=== PATIENT | male | born 1970 | race Caucasian/White ===

== ENCOUNTER 2016-09-23 16:38 | Emergency (ER) | payer SELFPAY ==
[~2016-09-23] VITALS: Ht 185.4 cm; Wt 85.0 kg
[~2016-09-23 16:38] MED LIST: LORTA5 PO
[2016-09-23 16:39] VITALS: BP 144/86; PULSE 87; RESP 18; TEMP 98.2; O2SAT 96
--- NOTE | 2016-09-23 17:37 | PD ---
HPI Chief Complaint: Injury Time Seen by Provider: 17:35 Travel History International Travel<30 days: No Contact w/Intl Traveler<30days: No Traveled to known affect area: No History of Present Illness HPI 46-year-old male presents to the emergency Department with complaint of a fish hook stuck in his left index finger. He attempted to push it through but he was afraid it was going to go through his nail bed. [place] was being used for saltwater fishing. He denies paresthesias, loss of sensation, decreased range of motion to the affected finger. He is not up-to-date on his tetanus vaccination. He denies fever, chills, nausea, vomiting. No known allergies. No other modifying factors or associated signs and symptoms. PFSH Past Medical History Diminished Hearing: Yes (FROM HEAVY EQUIP) Past Surgical History Appendectomy: Yes Tonsillectomy: Yes Social History Alcohol Use: Yes (OCC.) Tobacco Use: Yes (1 PPD) Substance Use: No Allergies-Medications (Allergen,Severity, Reaction): Coded Allergies: No Known Allergies (Verified , 11/09/13) Reported Meds & Prescriptions Reported Meds & Active Scripts Active Ibuprofen 800 Mg Tab 800 Mg PO Q6HR PRN Doxycycline Hyclate 100 Mg Cap 100 Mg PO BID 10 Days Hydrocodone/Acetaminophen 5 mg/325 mg 1 Tab Tab 1 Tab PO Q6 PRN Review of Systems Except as stated in HPI: all other systems reviewed are Neg Physical Exam Narrative GENERAL: Well-nourished, well-developed male patient, in no acute distress SKIN: Warm and dry. Fish hook noted to the distal aspect of the left index finger, not involving the nailbed. Finger is without erythema, edema; with full range of motion and sensory intact; less than 3 second cap refill. HEAD: Atraumatic. Normocephalic. EYES: Pupils equal and round. No scleral icterus. No injection or drainage. ENT: Mucosa pink and moist. Airway patent. NECK: Trachea midline. CARDIOVASCULAR: Regular rate. RESPIRATORY: No accessory muscle use. GASTROINTESTINAL: Flat. MUSCULOSKELETAL: No obvious deformities. No clubbing. No cyanosis. No edema. NEUROLOGICAL: Awake and alert. Oriented 3. No obvious cranial nerve deficits. Motor grossly within normal limits. Normal speech. PSYCHIATRIC: Appropriate mood and affect; insight and judgment normal. Data Data Last Documented VS Vital Signs Date Time Temp Pulse Resp B/P Pulse Ox O2 Delivery O2 Flow Rate FiO2 09/23/16 18:58 16 09/23/16 17:57 Room Air 09/23/16 16:39 98.2 87 144/86 96 Orders Finger ([id number]) (09/23/16 ) Ibuprofen (Motrin) (09/23/16 17:45) Tetanus/Diphtheria Tox Adult (Tetanus/Di (09/23/16 17:45) Bupivacaine Pf 0.5% Inj (Marcaine Pf 0.5 (09/23/16 17:45) Lidocaine 1% Inj (50 Ml) (Xylocaine 1% I (09/23/16 17:45) Finger ([id number]) (09/23/16 ) MDM Medical Decision Making Medical Screen Exam Complete: Yes Emergency Medical Condition: Yes Medical Record Reviewed: Yes Differential Diagnosis [place] injury, soft tissue foreign body, finger foreign body Narrative Course 46-year-old male with a fishhook in the distal aspect of the left index finger. Tetanus updated in the ER. Ibuprofen administered. Left index finger x-ray ordered. See my procedure note for fishhook removal. Doxycycline and ibuprofen prescribed for home. Patient verbalizes understanding and agreement with treatment plan. Patient is medically cleared and stable for discharge. Discussed reasons to return to the emergency department. Instructed patient to follow up with primary care provider. Patient agrees with treatment plan. The patients vital signs are stable and the patient is stable for outpatient follow- up and treatment. Patient discharged home, stable and in no acute distress. 1807: Left index finger x-ray concludes: Last 24 hours Impressions Finger X-Ray 09/23/16 0000 Signed Impressions: Service Date/Time: Friday, September 23, 2016 17:42 - CONCLUSION: [place] in the tip of the index finger Jesus Napier MD 1848: Repeat x-ray ordered of left index finger post foreign body removal; x- ray concludes foreign body removal and no acute bony injury. Doxycycline and ibuprofen prescribed for home. Patient verbalizes understanding and agreement with treatment plan. Patient is medically cleared and stable for discharge. Discussed reasons to return to the emergency department. Instructed patient to follow up with primary care provider. Patient agrees with treatment plan. The patients vital signs are stable and the patient is stable for outpatient follow-up and treatment. Patient discharged home, stable and in no acute distress. Procedures Procedure Narrative Foreign body removal of left index finger: The finger was digitally blocked with 0.5% bupivacaine and 1% lidocaine. The finger was cleaned with Betadine. The fishhook was successfully removed by pushing it through the pad of the palmar aspect of the finger. Patient tolerated well. Sterile dressing applied. Repeat x-ray ordered. Diagnosis Primary Impression: Fish hook injury of left index finger Qualified Code: S69.92XA - Fish hook injury of left index finger, initial encounter Additional Impression: Foreign body of finger Referrals: Primary Care Physician Patient Instructions: General Instructions, Puncture Wound (ED) Additional Instructions: Take antibiotics as prescribed and complete full course Follow-up with primary care provider Return to the emergency department immediately with worsening symptoms Med/Other Pt SpecificInfo: Prescription(s) given Scripts Ibuprofen 800 Mg [id number] Mg PO Q6HR PRN (PAIN) #30 TAB Ref 0 Prov:Sheryl Motta 09/23/16 Doxycycline Hyclate 100 Mg [id number] Mg PO BID 10 Days Ref 0 Prov:Sheryl Motta 09/23/16 Disposition: 01 DISCHARGE HOME Condition: Stable Sheryl Motta Sep 23, 2016 17:37
[2016-09-23] MEDS ORDERED: TETANUS/DIPHTHERIA TOXOID ADULT 0.5 ML VIAL IM ONE (17:45)
[2016-09-23] MEDS ORDERED: BUPIVACAINE HCL PF 0.5% 10 ML VIAL INFIL ONE (17:45)
[2016-09-23] MEDS ORDERED: IBUPROFEN 800 MG TAB PO ONE (17:45)
[2016-09-23] MEDS ORDERED: LIDOCAINE HCL 1% 50 ML VIAL INFIL ONE (17:45)
[2016-09-23] MEDS ORDERED: IBUP800T23 PO (17:46)
[2016-09-23] MEDS ORDERED: DOXY100C PO (17:46)
--- NOTE | 2016-09-23 17:51 | RADRPT ---
EXAM DATE/TIME: 09/23/2016 17:42 [facility] COMPARISON: HAND LEFT COMPLETE ([id number]), November 09, 2013, 19:26. INDICATIONS : Foreign body. MEDICAL HISTORY : Trauma, fishing hook. SURGICAL HISTORY : None. ENCOUNTER: Initial ACUITY: 1 day PAIN SCORE: 2/10 LOCATION: Left Hand, 2nd Digit FINDINGS: A fishhook projects in the tip of the index finger entering the palmar aspect of the index finger wit h the mireille appearing to at least abut the distal tuft without definite fracture associated. The bony elements are nonacute throughout. An old ulnar solid fracture fragment unchanged. No signif icant articular abnormalities are evident. CONCLUSION: [place] in the tip of the index finger Jesus Napier MD on September 23, 2016 at 17:48 Board Certified Radiologist. This report was verified electronically.
[2016-09-23 18:58] VITALS: RESP 16
--- NOTE | 2016-09-23 19:31 | RADRPT ---
EXAM DATE/TIME: 09/23/2016 19:06 [facility] COMPARISON: FINGER LEFT 2ND DIGIT ([id number]), September 23, 2016, 17:42. INDICATIONS : Post removal of fishing hook. MEDICAL HISTORY : None. SURGICAL HISTORY : None. ENCOUNTER: Initial ACUITY: 1 day PAIN SCORE: 0/10 LOCATION: Left second digit. FINDINGS: Fish hook is been removed from the tip of the index finger. There is no evidence of remaining foreign body. The bony elements are intact and unremarkable. CONCLUSION: Successful removal of Fish hook foreign body Jesus Napier MD on September 23, 2016 at 19:29 Board Certified Radiologist. This report was verified electronically.
== END 2016-09-23 19:45 | disposition home or self-care (01) ==
LOC: NETRI 16:38 → NEPB 19:45
DX: S61.241A Puncture wound with foreign body of left index finger without damage to nail, initial encounter (principal); W45.8XXA Other foreign body or object entering through skin, initial encounter; Y93.89 Activity, other specified; Y92.89 Other specified places as the place of occurrence of the external cause; Z23 Encounter for immunization; F17.210 Nicotine dependence, cigarettes, uncomplicated
CPT/HCPCS: 64450; 73140; 90471; 90714

== ENCOUNTER 2017-10-23 13:59 | Emergency (ER) | payer OTHER ==
[~2017-10-23] VITALS: Ht 188 cm; Wt 103.2 kg
[~2017-10-23 13:59] MED LIST changes: +DOXY100C PO; +IBUP1TAB7 PO
[2017-10-23 14:05] VITALS: BP 165/101; PULSE 130; RESP 18; TEMP 98.3; O2SAT 99
[2017-10-23] MEDS ORDERED: SUBO8MIS SL (14:28)
[2017-10-23] MEDS ORDERED: VIST25CA PO (14:28)
[2017-10-23] MEDS ORDERED: SODIUM CHLOR 0.9% 1000 ML INJ 1,000 ML IV ONE (14:30)
[2017-10-23 14:39] LABS: AUTOMATED NEUTROPHIL # 3.8 TH/MM3 (1.8-7.7); BASOPHIL # 0.1 TH/MM3 (0-0.2); BASOPHIL % 1.3 % (0.0-2.0); EOSINOPHIL # 0.1 TH/MM3 (0-0.4); EOSINOPHIL % 1.6 % (0.0-4.0); HEMATOCRIT 40.2 % (39.0-51.0); HEMOGLOBIN 13.6 GM/DL (13.0-17.0); LYMPHOCYTE # 2.4 TH/MM3 (1.0-4.8); MEAN CELL VOLUME 87.6 FL (80.0-100.0); MEAN CORPUSCULAR HEMOGLOBIN 29.8 PG (27.0-34.0); MEAN PLATELET VOLUME 7.8 FL (7.0-11.0); MONO % 7.9 % (0.0-8.0); MONOCYTE # 0.6 TH/MM3 (0-0.9); NEUT % 55.2 % (16.0-70.0); PLATELET COUNT 236 TH/MM3 (150-450); RED BLOOD COUNT 4.59 MIL/MM3 (4.50-5.90); RED CELL DISTRIBUTION WIDTH 12.9 % (11.6-17.2)
[2017-10-23 14:47] LABS: CHLORIDE 103 MEQ/L (98-107); SODIUM (NA) 137 MEQ/L (136-145)
[2017-10-23 14:50] LABS: CALCIUM 8.5 MG/DL (8.5-10.1)
[2017-10-23 14:51] LABS: ALBUMIN 3.6 GM/DL (3.4-5.0); BLOOD UREA NITROGEN 8 MG/DL (7-18); GLUCOSE,RANDOM 115 MG/DL (74-106)
[2017-10-23 14:54] LABS: ALT (GPT) 18 U/L (12-78); AST (GOT) 14 U/L (15-37); GLOMERULAR FILTRATION RATE 81 ML/MIN (>89)
[2017-10-23 14:56] LABS: TOTAL BILIRUBIN ADULT 0.2 MG/DL (0.2-1.0); TOTAL PROTEIN 7.1 GM/DL (6.4-8.2)
[2017-10-23 14:57] LABS: ALKALINE PHOSPHATASE 69 U/L (45-117)
--- NOTE | 2017-10-23 15:01 | RADRPT ---
EXAM DATE/TIME: 10/23/2017 14:45 [facility] COMPARISON: No previous studies available for comparison. INDICATIONS : Short of breath since today. MEDICAL HISTORY : None. SURGICAL HISTORY : None. ENCOUNTER: Initial ACUITY: 1 day PAIN SCORE: 0/10 LOCATION: Bilateral chest FINDINGS: A single view of the chest demonstrates the lungs to be symmetrically aerated without evidence of mas s, infiltrate or effusion. The cardiomediastinal contours are unremarkable. Osseous structures are intact with old healed left clavicular fracture. There are overlying electrocardiogram leads. CONCLUSION: No acute disease. Gelacio Cash MD on October 23, 2017 at 14:59 Board Certified Radiologist. This report was verified electronically.
[2017-10-23 15:21] VITALS: BP 155/95
--- NOTE | 2017-10-23 15:23 | PD ---
HPI Chief Complaint: Anxiety Time Seen by Provider: 14:16 Travel History International Travel<30 days: No Contact w/Intl Traveler<30days: No Traveled to known affect area: No History of Present Illness HPI Patient is a 47 year old male who comes in complaining of a panic attack. He says he started to feel short of breath and have palpitations and became very anxious. He took 2 Hydroxyzine prior to coming in. He says his symptoms made him feel very nervous, so he came in. He denies chest pain, leg pain or swelling. He says he has been drinking more alcohol in the past week. Severity is mild to moderate. 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) Allergies-Medications (Allergen,Severity, Reaction): Coded Allergies: No Known Allergies (Verified Adverse Reaction, Unknown, 10/23/17) Reported Meds & Prescriptions Reported Meds & Active Scripts Active Reported Vistaril (Hydroxyzine Pamoate) 25 Mg Cap 25 Mg PO BID PRN Suboxone Sublingual Film (Buprenorphine-Naloxone Sublingual Film) Unknown Strength Film Unknown Dose SL DAILY Unique ID number required: Review of Systems Except as stated in HPI: all other systems reviewed are Neg General / Constitutional: No: Fever, Chills HENT: No: Headaches, Lightheadedness Cardiovascular: Positive: Palpitations, No: Chest Pain or Discomfort Respiratory: Positive: Shortness of Breath Gastrointestinal: No: Nausea, Vomiting Musculoskeletal: No: Myalgias Neurologic: No: Weakness, Dizziness Psychiatric: Positive: Anxiety Physical Exam Narrative GENERAL: Awake and alert, in no acute distress. SKIN: Focused skin assessment warm/dry. HEAD: Atraumatic. Normocephalic. EYES: Pupils equal and round. No scleral icterus. ENT: Mucous membranes pink and moist. NECK: Trachea midline. No JVD. CARDIOVASCULAR: Tachycardia. No murmur appreciated. RESPIRATORY: No accessory muscle use. Clear to auscultation. Breath sounds equal bilaterally. GASTROINTESTINAL: Abdomen soft, non-tender, nondistended. MUSCULOSKELETAL: No obvious deformities. No clubbing. No cyanosis. No edema. NEUROLOGICAL: Awake and alert. No obvious cranial nerve deficits. Motor grossly within normal limits. Normal speech. PSYCHIATRIC: Appropriate mood and affect; insight and judgment normal. Data Data Last Documented VS Vital Signs Date Time Temp Pulse Resp B/P (MAP) Pulse Ox O2 Delivery O2 Flow Rate FiO2 10/23/17 14:21 119 16 10/23/17 14:05 98.3 165/101 (122) 99 Orders Orders Iv Access Insert/Monitor (10/23/17 14:22) Complete Blood Count With Diff (10/23/17 14:22) Comprehensive Metabolic Panel (10/23/17 14:22) D-Dimer (10/23/17 14:22) Electrocardiogram (10/23/17 ) Chest, Single Ap (10/23/17 ) Alcohol (Ethanol) (10/23/17 14:22) Sodium Chlor 0.9% 1000 Ml Inj (Ns 1000 M (10/23/17 14:30) Labs Laboratory Tests Test 10/23/17 14:30 White Blood Count 7.0 TH/MM3 Red Blood Count 4.59 MIL/MM3 Hemoglobin 13.6 GM/DL Hematocrit 40.2 % Mean Corpuscular Volume 87.6 FL Mean Corpuscular Hemoglobin 29.8 PG Mean Corpuscular Hemoglobin Concent 34.0 % Red Cell Distribution Width 12.9 % Platelet Count 236 TH/MM3 Mean Platelet Volume 7.8 FL Neutrophils (%) (Auto) 55.2 % Lymphocytes (%) (Auto) 34.0 % Monocytes (%) (Auto) 7.9 % Eosinophils (%) (Auto) 1.6 % Basophils (%) (Auto) 1.3 % Neutrophils # (Auto) 3.8 TH/MM3 Lymphocytes # (Auto) 2.4 TH/MM3 Monocytes # (Auto) 0.6 TH/MM3 Eosinophils # (Auto) 0.1 TH/MM3 Basophils # (Auto) 0.1 TH/MM3 CBC Comment DIFF FINAL Differential Comment Blood Urea Nitrogen 8 MG/DL Creatinine 1.00 MG/DL Random Glucose 115 MG/DL Total Protein 7.1 GM/DL Albumin 3.6 GM/DL Calcium Level 8.5 MG/DL Alkaline Phosphatase 69 U/L Aspartate Amino Transf (AST/SGOT) 14 U/L Alanine Aminotransferase (ALT/SGPT) 18 U/L Total Bilirubin 0.2 MG/DL Sodium Level 137 MEQ/L Potassium Level 3.3 MEQ/L Chloride Level 103 MEQ/L Carbon Dioxide Level 28.0 MEQ/L Anion Gap 6 MEQ/L Estimat Glomerular Filtration Rate 81 ML/MIN Ethyl Alcohol Level 37 MG/DL MDM Medical Decision Making Medical Screen Exam Complete: Yes Emergency Medical Condition: Yes Medical Record Reviewed: Yes Interpretation(s) ECG shows sinus tachycardia at a rate of 112. Differential Diagnosis dehydration vs intoxication vs anxiety Narrative Course Patient is a 47 year old male who comes in complaining of a panic attack with shortness of breath and palpitations. Exam shows tachycardia. IV established, labs sent. Patient did not want to wait for labs to come back. He was given IVF and he says that his Hydroxyzine kicked in and he was feeling better. I explained to him that his labs could be abnormal suggesting something dangerous occurring. He does not wish to stay any longer. He understands that by leaving AMA, he could become more sick or even . AMA: The risks of leaving against medical advice without further evaluation treatment were discussed with the patient. These risks include cardiac dysfunction, cardiac dysrhythmia, possible heart attack, possible stroke or . The patient indicated understanding of these risks and appeared to have the capacity to make this decision. Diagnosis Primary Impression: Anxiety Disposition: 07 AGAINST MEDICAL ADVICE Mimi Murrieta MD Oct 23, 2017 15:23
--- NOTE | 2017-10-23 20:41 | EKG ---
Date Performed: 10/23/2017 Time Performed: 14:36:01 PTAGE: 47 years EKG: Sinus rhythm VOLTAGE CRITERIA FOR LVH ABNORMAL RHYTHM ECG NO PREVIOUS TRACING DOCTOR: Fady Harris Interpretating Date/Time 10/23/2017 20:41:05
== END 2017-10-23 15:26 | disposition left against medical advice (07) ==
LOC: PHED 13:59
DX: F41.9 Anxiety disorder, unspecified (principal); R06.02 Shortness of breath; R00.2 Palpitations; R00.0 Tachycardia, unspecified; F17.200 Nicotine dependence, unspecified, uncomplicated; R94.31 Abnormal electrocardiogram [ECG] [EKG]; Z79.899 Other long term (current) drug therapy
CPT/HCPCS: 71045; 80053; 80307; 85025; 85379; 93005; 96360; 99285; J7030

== ENCOUNTER 2017-10-23 17:51 | Emergency (ER) | payer OTHER ==
[~2017-10-23] VITALS: Ht 185.4 cm; Wt 75.2 kg
[~2017-10-23 17:51] MED LIST changes: +SUBO8MIS SL; +VIST25CA PO
[2017-10-23 17:54] VITALS: BP 163/92; PULSE 108; RESP 16; TEMP 97.9; O2SAT 97
== END 2017-10-23 19:28 | disposition left against medical advice (07) ==
LOC: PHEFT 17:51
DX: F41.9 Anxiety disorder, unspecified (principal); Z53.21 Procedure and treatment not carried out due to patient leaving prior to being seen by health care provider
CPT/HCPCS: 99281

== ENCOUNTER 2017-10-26 10:53 | Emergency (ER) | payer OTHER ==
[~2017-10-26 10:53] MED LIST changes: -DOXY100C PO; -IBUP1TAB7 PO; -LORTA5 PO
== END 2017-10-26 12:00 | disposition left against medical advice (07) ==
LOC: NED 10:53
DX: F41.9 Anxiety disorder, unspecified (principal); Z53.21 Procedure and treatment not carried out due to patient leaving prior to being seen by health care provider
CPT/HCPCS: 99281